=== PATIENT | male | born 1985 | race Caucasian/White ===

== ENCOUNTER 2022-06-16 19:08 | Emergency (ER) | payer MEDICAID ==
[~2022-06-16] VITALS: Ht 185.4 cm; Wt 72.7 kg
[2022-06-16 20:11] VITALS: BP 114/64
== END 2022-06-16 22:10 | disposition left against medical advice (07) ==
LOC: ER 19:09
DX: R51.9 Headache, unspecified (principal); Z53.21 Procedure and treatment not carried out due to patient leaving prior to being seen by health care provider

== ENCOUNTER 2022-06-17 11:32 | Emergency (ER) | payer OTHER, MEDICAID ==
[~2022-06-17] VITALS: Ht 185.4 cm; Wt 72.7 kg
[2022-06-17 11:56] VITALS: BP 131/71
== END 2022-06-17 15:28 | disposition home or self-care (01) ==
LOC: ER 11:32
DX: S69.92XA Unspecified injury of left wrist, hand and finger(s), initial encounter (principal); M25.532 Pain in left wrist; F17.200 Nicotine dependence, unspecified, uncomplicated; V99.XXXA Unspecified transport accident, initial encounter; Y93.89 Activity, other specified; Y92.89 Other specified places as the place of occurrence of the external cause; Y99.8 Other external cause status
CPT/HCPCS: 29260; 73110; 99283